=== PATIENT | female | born 1995 | race African-American/Black ===

== ENCOUNTER 2017-05-27 04:42 | Emergency (ER) | payer MEDICAID ==
[~2017-05-27] VITALS: Ht 162.6 cm; Wt 84.0 kg
[2017-05-27] MEDS ORDERED: METHYLPREDNISOLONE SOD SUCC 125 MG/2 ML VIAL IM ONE (07:45)
[2017-05-27] MEDS ORDERED: IPRATROPIUM/ALBUTEROL 0.5-3(2.5)MG/3ML NEB HHN ONE (07:45)
[2017-05-27 08:31] VITALS: BP 106/64
== END 2017-05-27 08:32 | disposition home or self-care (01) ==
LOC: ER 07:33
DX: J45.901 Unspecified asthma with (acute) exacerbation (principal)
CPT/HCPCS: 94640; 96372; 99283; J2930; J7620